=== PATIENT | male | born 1955 | race Caucasian/White ===

== ENCOUNTER 2025-07-09 08:46 | Outpatient (OUT) | payer MEDICARE, SELFPAY ==
--- OUTSIDE RECORDS SUMMARY | 2025-06-28 14:30 | XMS_ITS | Encounter Summary ---
Author Organization [facility] Address [address] [place] [address] Care Team Providers Care Septic Tank Service Technician Name Role Phone Kaur Drew MD Primary Care Provider [phone] Source Comments In the event this information is protected by the Federal Confidentiality of Alcohol and Drug AbusePatient Records regulations: The Federal rules restrict any use of the information to criminally investigate or prosecute any alcohol or drug abuse patient.[facility] Encounter Details DateTypeDepartmentCare Team (Latest Contact Info)Gequhmkdbsi83/08/2025 2:30 PM ESTOffice Visit Orthopaedics [address] [place], [place] [id number] [place] [address] [place] [address] DJD (degenerative joint disease), ankle and foot, left (Primary Dx) Social History Tobacco UseTypesPacks/DayYears UsedDateSmoking Tobacco: SswlaqRyztzyotwk65 Comments:quit 25 years ago Alcohol UseStandard Drinks/WeekCommentsYes1 (1 standard drink = 0.6 oz pure alcohol)socialPHQ-2AnswerDate RecordedPHQ-2 cdhbn55108/26/2024rea Deprivation IndexAnswerDate RecordedNational Score (1-100), lower number is lower risk63 06/28/2025State Score (1-10), lower number is lower wcnz70008/29/2024Data from: https://www.neighborhoodatlas.[facility]/. 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 He is feeling sore. 4/10 when walking. He is not talking anything for the sore. He is here to talk about surgery. Swelling: none Pain: 4/10 WB status: full DME/Mobility: none Treatments Tried: Ice: none NSAIDs: yes Brace: yes Injections: none Physical Therapy: none Surgeries: none PHYSICAL EXAM: General: no acute distress HENT: head normocephalic, mouth mucous membranes are moist. Eyes: extraocular movements intact, pupils are equal, round, and reactive to light. Cardiovascular: DP pulse present Pulmonary: normal work of breathing on room air Skin: capillary refill takes less than 2 seconds Neurological: AOx4, follows commands Musculoskeletal: Left lower extremity Inspection: lower extremity with varus bow of tibia, well healed scars Palpation: no areas of tenderness to palpation Gait: mildly antalgic ROM: tolereates DF 10, PF 20 Neuro: sensation to light touch intact in the superficial peroneal, deep peroneal, tibial, sural, and saphenous nerve distributions Vascular: DP pulse present, 2+ Compartments: compartments of leg are soft and compressible IMAGING: Independent evaluation of following imaging was completed today: XR Left ankle 3 views - distal tibia and fibula extra-articular varus deformity, post-traumatic - ankle DJD, moderate ASSESSMENT: Left ankle DJD, moderate 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 BRACE ORDER Type of Brace Need: - Type of brace: Left Josephine brace - Dx Code: M19.079 - Length of need: custom brace will be needed indefinitely - How brace will improve ADL: the brace will help improve patient ability to ambulate and do ADLs without pain - Imaging: XR Left ankle DJD severe WB status: WBAT Mobility: [place] brace Physical therapy: discussed for calf strengthening Follow up: 3-4 months Imaging at next visit: none Thank you for the opportunity to participate in this patient's care. Satnam Martines MD documented in this encounter Plan of Treatment DateTypeDepartmentCare Team (Latest Contact Info)Osrhrzeasou25/12/2026 11:00 AM ESTAppointment Radiology [address] [place] [address] XR BILATERAL KNEE09/02/2025 11:30 AM ESTOffice Visit Orthopaedics [address] [place] [address] Douglas Castañeda MD [address] [place] [address] Consult bilateral knee cffbvrqhyvk60/09/2026 2:15 PM EDTOffice Visit Orthopaedics [address] [place] [address] [place] [address] [place] [address] LT ANKLEdocumented as of this encounter Visit Diagnoses Diagnosis DJD (degenerative joint disease), ankle and foot, left- Primary documented in this encounter Care Teams Team MemberRelationshipSpecialtyStart DateEnd Date Kaur Drew MD [address] [place] [address] PCP - GeneralFamily Medicine08/10/15documented as of this encounter
--- OUTSIDE RECORDS SUMMARY | 2025-07-01 08:24 | XMS_ITS | Continuity of Care Document ---
Author Organization [facility] Address [address] [place] [address] Phone Care Team Providers Care Unemployment Claims Adjudicator Name Role Phone Kaur Drew MD Primary Care Provider Kaur Drew MD Attending Provider Care Teams Patient Care Team Team Status: Active Member Role/Relationship Status Dates Kaur Drew MD Primary Care Provider Active Patient Care Team Team Status: Inactive Member Role/Relationship Status Dates Kaur Drew MD Primary Care Provider Active Start: July 01, 2025 End: July 01, 2025Kaur Drew MDAttending ProviderActiveStart: July 01, 2025 End: July 01, 2025 Chief Complaint and Reason for Visit Chief Complaint Admit Date wellness July 01, 2025 10:55am Reason for Visit Admit Date Hyperlipidemia, unspecified June 10:55am Screening PSA (prostate specific antigen ) July 01, 2025 10:55am Wellness examination July 01, 2025 10:55am Allergies, Adverse Reactions, Alerts Allergen Type Severity Reaction Last Updated Verified Status No Known Allergies Allergy Unknown July 01, 2025 11:28amYesActive Social History Smoking Status Status Start Date End Date Date of Observa tion Never smoked tobacco (finding) July 01, 2025 11:29am Observation Status Observation Response Date of Response Legal Sex Male (finding) Sex [facility] 1955 Family History Relationship Condition Age at Onset Recorded Date/T lavern brother Family history of lung cancer Unknown Malignant neoplasmUnknown Problems Active Problems Problem Diagnosis/Recorded Date Onset Date Stat us Screening PSA (prostate spec ific antigen) July 01, 2025 12:20pm Unknown Active Wellness examination July 01, 2025 12:20pm Unkno wn Active Hyperlipidemia, unspecified June 30, 2025 1:19pm Unknown Active Medications No known medications Immunizations Immunization Event Date Not Given Reason Dose Number Air Brake Operator Lot Number Reason(s) Given Vaccine Information Statement (VIS) Detail Administration Location influenza, unspecified formulation June influenza, unspecified formulationDe2022 Vital Signs Vital Reading Result Reference Range Collection Date/Time Height 70 [in_i] July 01, 2025 11:52qhFxqujk80.13 kgDe2024 11:28amHeart Rate75 /vso78-683Twqrbqft 11th, 2025 11:37amBP Foollixm584 mm[Hg]100-140De2024 11:37amBP Wccirnade37 mm[Hg]60-100[facility] 2024 11:37amBMI (Body Mass Index)21.2 kg/j1Npsbvdyq2024 11:28am Advance Directives Advance Directive Response Recorded Date/ Time Advance Directives No June 10:53am Insurance Providers Guarantor Tom Culver Chism Address [address] [place] [id number] Info.Home Phone: Coverage Status Update:2025 Payer Group Member ID Coverage Type Subscriber Relationship to Subscriber Effective Date Expiration Date Rissa [facility] PFFS [id number] Chism Id: [id number] [address] [place] [phone] Home Phone: [employer] [address] [facility] [address] Work Phone: [phone] Encounters Encounter Location(s) Arrival/Admit Date Discharge/Departure Date Discharge/Departure Disposition Provider(s) Departed Physician/ Provider Office Visit -[facility] July 01, 2025 10:55am July 01, 2025 1:23pm Discharged to home care or self care (routine discharge) Kaur Drew MD Recent Diagnosis Onset Date Admit Date Hyperlipidemia, unspecified Unknown Dece mb2024 10:55am Screening PSA (prostate specific antigen) Unknow n July 01, 2025 10:55am Wellness examination Unknown July 012024 10:55am Assessments Diagnosis Onset Date Resolution Status Admit Date Hyperlipidemia, unspecified acuteDe2024 10:55amScreening PSA (prostate specific antigen)acute July 01, 2025 10:55amWellness examinationacuteDece2024 10:55am Plan of Treatment Future Tests Future scheduled test information is unavailable Pending Tests Test Name Ordered Date Scheduled Date Comprehensive Metabolic Panel July 01 12:19pm Future Visits Future appointment information is unavailable Future Procedures Procedure Name Ordered Date Scheduled Date Complete Blood Count Auto Diff July 01 12:19pm Lipid PanelDece2024 12:19pmPSA Screen (Yearly Only)July 01, 2025 12:19pm Future Medications Future medication information is unavailable Patient Instructions Patient instructions are unavailable
--- OUTSIDE RECORDS SUMMARY | 2025-07-09 08:55 | XMS_ITS | Encounter Summary ---
Author Organization [facility] Address [address] [place] [address] Care Team Providers Care Photograph Finisher Name Role Phone Kaur Drew MD Primary Care Provider [phone] Source Comments In the event this information is protected by the Federal Confidentiality of Alcohol and Drug AbusePatient Records regulations: The Federal rules restrict any use of the information to criminally investigate or prosecute any alcohol or drug abuse patient.[facility] Reason for Referral * Diagnostic Procedure Only (Routine) - AuthorizedSpecialtyDiagnoses / ProceduresReferred By ContactReferred To ContactXR IMAGING Diagnoses Pain Procedures XR KNEE GENERAL 4V AP BOTH/PA BOTH/LAT/MERC BILATERAL RADIOLOGIC EXAM KNEE COMPLETE 4/MORE VIEWS Natalee Lazo, UNIFORM ROOM ATTENDANT.MEMS INTEGRATION ENGINEER [address] [place] [address] Phone: tel: fax: [place] [address] Referral IDStatusReasonStart DateExpiration DateVisits RequestedVisits [id number] Auto-Generated Referral * Diagnostic Procedure Only (Routine) - ClosedSpecialtyDiagnoses / Procedures Referred By ContactReferred To ContactXR IMAGING Diagnoses Pain Procedures XR ANKLE GENERAL 3V AP/LAT/OBL LEFT RADEX ANKLE COMPLETE MINIMUM 3 VIEWS Natalee Lazo APRN.MEMS INTEGRATION ENGINEER [address] [place] [address] Phone: tel: fax: [facility] [place] [address] Referral IDStatusReasonStart DateExpiration DateVisits RequestedVisits [id number] Auto-Generated Referral Encounter Details DateTypeDepartmentCare Team (Latest Contact Info)Kqftpuxfxjn20/11/2025Orders Only [facility] [address] [place] [address] Natalee Lazo APRN.MEMS INTEGRATION ENGINEER [address] [place] [phone] Pain (Primary Dx) Social History Tobacco UseTypesPacks/DayYears UsedDateSmoking Tobacco: EryajpSpequhrsno69 Comments:quit 25 years ago Alcohol UseStandard Drinks/WeekCommentsYes1 (1 standard drink = 0.6 oz pure alcohol)socialArea Deprivation IndexAnswerDate RecordedNational Score (1-100), lower number is lower blhq113309/10/2024State Score (1-10), lower number is lower etzh561Data from: https://www.neighborhoodatlas.med[facility].edu/. Last address used for aebporvitaj[address]/10/[address]24Sex and Gender InformationValueDate RecordedSex Assigned at BirthNot on fileLegal SexMale 06/22/2012 7:35 AM ESTGender IdentityNot on fileSexual OrientationNot on file documented as of this encounter Plan of Treatment DateTypeDepartmentCare Team (Latest Contact Info)Tojcqiwzkbo80/12/2026 11:00 AM ESTAppointment Radiology [address] [place] [address] XR BILATERAL KNEE09/02/2025 11:30 AM ESTOffice Visit Orthopaedics [address] [place] [address] Douglas Castañeda MD [address] [place] [address] Consult bilateral knee qwoyamvdhka43/09/2026 2:15 PM EDTOffice Visit Orthopaedics [address] [place] [address] [place] [address] [place] [address] LT ANKLENameTypePriorityAssociated DiagnosesOrder ScheduleXR KNEE GENERAL 4V AP BOTH/PA BOTH/LAT/MERC BILATERALRadiologyRoutine Pain 1 Occurrences starting 06/30/2025 until 07/30/2026documented as of this encounter Results * XR ANKLE GENERAL 3V AP/LAT/OBL LEFT (06/02/2025 3:41 PM EST)Anatomical Region LateralityModalityAnkleOtherSpecimen (Source)Anatomical Location / Laterality Collection Method / VolumeCollection TimeReceived Time06/02/2025 3:41 PM EST Impressions 06/02/2025 4:52 PM EST IMPRESSION: 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 Remote healed fractures of the tibia and fibula. Hand Tube Winder: DM ?? Transcribe Date/Time: Jun 02 2025 ??4:48P Dictated by : GENET DOYLE MD This examination was interpreted and the report reviewed and electronically signed by: GENET DOYLE MD on Jun 02 2025 ??4:49PM ??EST Narrative 06/02/2025 4:52 PM EST * * *Final Report* * * DATE OF EXAM: Jun 02 2025 ??3:41PM ?? AFR ?? [id number] ??- ??XR ANKLE 3V AP/LAT/OBL LT ??/ PROCEDURE REASON: Pain ? * * * * Physician Interpretation * * * * X-RAYS LEFT ANKLE. HISTORY: ?? CHRONIC LEFT ANKLE PAIN. ?? Pain TECHNIQUE: 3 views of the left ankle. COMPARISON: ??None RESULT: No prior radiographs available for comparison. ??There is a remote healed fracture of the distal tibial shaft and remote healed fracture of the mid fibular shaft. ??There is severe osteoarthritis at the right ankle tibiotalar joint with complete loss of the joint space laterally. ?? Subtalar joint appears maintained. ??No acute fracture or dislocation identified. Procedure Note Provider, [facility] - 06/02/2025 * * *Final Report* * * DATE OF EXAM: Jun 02 2025 3:41PM AFR [id number] - XR ANKLE 3V AP/LAT/OBL LT / PROCEDURE REASON: Pain * * * * Physician Interpretation * * * * X-RAYS LEFT ANKLE. HISTORY: CHRONIC LEFT ANKLE PAIN. Pain TECHNIQUE: 3 views of the left ankle. COMPARISON: None RESULT: No prior radiographs available for comparison. There is a remote healed fracture of the distal tibial shaft and remote healed fracture of the mid fibular shaft. There is severe osteoarthritis at the right ankle tibiotalar joint with complete loss of the joint space laterally. Subtalar joint appears maintained. No acute fracture or dislocation identified. 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 Remote healed fractures of the tibia and fibula. Hand Tube Winder: DM Transcribe Date/Time: Jun 02 2025 4:48P Dictated by : GENET DOYLE MD This examination was interpreted and the report reviewed and electronically signed by: GENET DOYLE MD on Jun 02 2025 4:49PM EST Authorizing ProviderResult TypeResult StatusMohamed M Clifton UNIFORM ROOM ATTENDANT.CNPRAD-PAMA Final Result documented in this encounter Visit Diagnoses Diagnosis Pain- Primary Generalized pain Pain Generalized pain documented in this encounter Care Teams Team MemberRelationshipSpecialtyStart DateEnd Date Kaur Drew MD [address] [place] [address] PCP - GeneralFamily Medicine08/10/15documented as of this encounter
--- OUTSIDE RECORDS SUMMARY | 2025-07-09 08:55 | XMS_ITS | Clinical Summary ---
Author Organization [facility] Address [id number] [place] [address] Care Team Providers Care Justowriter Operator Name Role Phone Kaur Drew MD Primary Care Provider [phone] Allergies No known active allergies Medications No known medications Active Problems ProblemNoted DateDiagnosed DatePost-traumatic arthritis of ankle, left03/11/2024 Social History Tobacco UseTypesPacks/DayYears UsedDateSmoking Tobacco: NeverSmokeless Tobacco: Never Tobacco Cessation:Counseling Given: No Alcohol UseStandard Drinks/WeekCommentsYes0 (1 standard drink = 0.6 oz pure alcohol)sociallyChildcareAnswerDate OrpwauquIujgfqfyvSdstkgd14/10/2019Employment AnswerDate UbffsvaxSziqbyslclEcwozcl56/10/2019Hunger ScreeningAnswerDate RecordedWithin the past 12 months we worried whether our food would run out before we got money to buy more.Never True03/11/2024Within the past 12 months the food we bought just didn't last and we didn't have money to get more.Never True4Purpose - LifeAnswerDate RecordedPurpose and direction in life Eckkhve2708/08/2020ex and Gender InformationValueDate RecordedSex Assigned at WojdbWdbu84/01/2021 7:52 PM ESTLegal DvhDorl3702/22/2015 2:52 PM EDTGender BbpdwgmxZvxi81/01/2021 7:52 PM ESTSexual IdybfaohasbHjsexokb72/01/2021 7:52 PM EST Last Filed Vital Signs Vital SignReadingTime TakenCommentsBlood Pressure--Pulse--Mkynjbryvvi71.3 ??C (97.3 ??F)11/16/2020 1:35 PM EDTRespiratory Rate--Oxygen Saturation--Inhaled Oxygen Concentration--Pgdasz79.7 kg (149 lb 3.2 oz)03/11/2024 2:36 PM EDTHeight 172.7 cm (5' 8 )03/11/2024 2:36 PM EDTBody Mass Index22.69003/11/2024 2:36 PM EDT Plan of Treatment Health MaintenanceDue DateLast DoneCommentsDepression Gsslvwdxt10/17/1968 DTaP,Tdap and Td Vaccines (1 - Tdap)10/05/1974Zoster (Shingles) Vaccine (1 of 2) 10/05/2005Fall Risk Mcpkgvdek74/17/2021dult BMI Jbhjbwxlj64/ Tobacco Qimlhntaj68/OVID-19 Vaccine (2 - season) /12/2020Influenza Gqhiwch47/2RSV ( or age 60+ yrs) (1 - 1-dose 75+ series)10/05/2030 Medical Devices Not on file Insurance Care Teams Team MemberRelationshipSpecialtyStart DateEnd Date Kaur Drew MD [facility] [place] [address] [facility]08/08/20
--- OUTSIDE RECORDS SUMMARY | 2025-07-09 08:55 | XMS_ITS | Clinical Summary ---
Author Organization [facility] Address [address] [place] [address] Care Team Providers Care Shoe Repair Supervisor Name Role Phone Kaur Drew MD Primary Care Provider Allergies No known active allergies Medications MedicationSigDispense QuantityRefillsLast FilledStart DateEnd DateStatus multivitamin ORAL Tab Take one(1) tablet daily.ctive doxycycline (VIBRA-TABS) 100 mg tablet Take 1 tablet by mouth two times a day. 14 tablet 5Active Active Problems ProblemNoted DateDiagnosed DateUlcerative colitis, unspecified Overview (10/04/2005): Ulcerative colitis Encounters DateTypeDepartmentCare KbgdAmudxekdhvz95/08/2025 2:30 PM ESTOffice Visit Orthopaedics [address] [place] [address] Satnam Martines MD DJD (degenerative joint disease), ankle and foot, left (Primary Dx)06/14/2025 1:43 PM EST - 06/14/2025 11:59 PM ESTHospital Encounter Radiology [address] [place] [address] Chronic pain of left ankle [M25.572, G89.29] Discharge Disposition: Home06/13/20252779Vnwhmy16/12/2025 4:00 PM ESTOffice Visit Orthopaedics [address] [place] [address] Natalee Lazo, VICE PRESIDENT SALES.MOLD CHANGER Chronic pain of left ankle (Primary Dx); Left foot pain06/02/2025 3:24 PM EST - 06/02/2025 11:59 PM ESTHospital Encounter Radiology [address] [place], [place] [id number] Pain [R52] Discharge Disposition: Home06/01/2025Orders Only [facility] [place] [address] [place] [address] Natalee Lazo, VICE PRESIDENT SALES.MOLD CHANGER Pain (Primary Dx)04/16/2025 2:30 PM EDTOffice Visit Dermatology [address] [place] [address] Eddi Bautista MD Skin cancer screening (Primary Dx); Diffuse photodamage of skin; History of basal cell carcinoma; Seborrheic keratosisfrom Last 3 Months Family History Medical HistoryRelationCommentsGIMaternal Auntcrohn'sAlzheimer's DiseaseMother HeartPaternal GrandmotherRelationStatusCommentsMaternal AuntMotherPaternal Grandmother Social History Tobacco UseTypesPacks/DayYears UsedDateSmoking Tobacco: ZlhqqgZdjlnhwnuy09 Comments:quit 25 years ago Alcohol UseStandard Drinks/WeekCommentsYes1 (1 standard drink = 0.6 oz pure alcohol)socialPHQ-2AnswerDate RecordedPHQ-2 eqopu00208/26/2024rea Deprivation IndexAnswerDate RecordedNational Score (1-100), lower number is lower risk63 06/28/2025State Score (1-10), lower number is lower rtpl13008/29/2024Data from: https://www.neighborhoodatlas.medicine.[facility].edu/. Last address used for hjmkexkxg[address] 6[address]/28/2025Sex and Gender InformationValueDate RecordedSex Assigned at BirthNot on fileLegal BruErqr45/02/2012 7:35 AM EST Gender IdentityNot on fileSexual OrientationNot on file Last Filed Vital Signs Vital SignReadingTime TakenCommentsBlood Yyenklla979/6904 10:42 AM EDT Xcjvf1031/01/2007 7:00 AM QUIAmrpqwyeitm12.5 ??C (95.9 ??F)06/21/2007 7:00 AM ESTRespiratory Bqzb567108/22/2006 7:00 AM ESTOxygen Eajrhqbbhp893%06/21/2007 7:00 AM ESTInhaled Oxygen Concentration--Obbotb57.5 kg (140 lb)07/08/2007 2:04 PM EST Stmzjq668.8 cm (5' 10 )06/02/2007 3:09 PM ESTBody Mass Index20. 3:09 PM EST Plan of Treatment DateTypeDepartmentCare Team (Latest Contact Info)Wkczyngniou64/12/2026 11:00 AM ESTAppointment Radiology [address] [place] [address] XR BILATERAL KNEE09/02/2025 11:30 AM ESTOffice Visit Orthopaedics [address] [place] [address] Douglas Castañeda MD [address] [place] [address] Consult bilateral knee vhbpejageth61/09/2026 2:15 PM EDTOffice Visit Orthopaedics [address] [place] [address] [place] [address] [place] [address] LT ANKLEHealth MaintenanceDue DateLast DoneCommentsAbdominal Aortic Aneurysm Hinvhbkfa80/17/1956Anxiety Hrhhgesjx79/17/1974Depression Ikhxbwnmk54/17/1974 Hepatitis C Ltpwmumis87/17/1974DTaP,Tdap,Td Vaccine (1 - Tdap)10/05/1974Lipid Bsogyywaa42/17/1991CT Lpeoguslpbme96/17/2001Cologuard (FIT-DNA)10/05/2000 Tbufmobibpi28/17/2001Colorectal Cancer Wuzozcujj92/17/2001Fecal Occult Blood 10/05/20001450Osxgbpfteaptm11/17/2001Pneumococcal Vaccine: 50+ (1 of 1 - PCV) 10/05/2005Shingrix Vaccine (1 of 2)10/05/2005Diabetes Wojhlrzov85/30/2010 06/20/2007, 06/20/2007, 06/19/2007, Additional history existsAdvance Directive Ynjblnaoqt92/01/2025Medicare Advantage Annual Wellness Visit07/22/2024ovid-19 Vaccine (2024- season)2025Influenza Vaccine (#1)2025RSV Vaccine (1 - 1-dose 75+ series)10/05/2030 Procedures Procedure NamePriorityDate/TimeAssociated DiagnosisCommentsCT ANKLE WO IVCON XPMNFpplujn75/24/2025 2:02 PM EST Chronic pain of left ankle XR ANKLE GENERAL 3V AP/LAT/OBL JTDUWdfapzt22/12/2025 3:41 PM EST Pain BASIC METABOLIC ZHGIQDdzdbqs83/30/2007 1:15 AM EST from Last 3 Months or Most Recently Relevant to Health Maintenance Results * CT ANKLE WO IVCON LEFT (06/14/2025 2:02 PM EST)Anatomical RegionLaterality ModalityAnkleComputed TomographySpecimen (Source)Anatomical Location / LateralityCollection Method / VolumeCollection TimeReceived Time06/14/2025 2:02 PM EST Narrative 06/15/2025 8:45 AM EST * * *Final Report* * * DATE OF EXAM: Jun 14 2025 ??2:02PM ?? LNC ?? 0060 ??- ??CT ANKLE WO IVCON LT ??/ PROCEDURE REASON: multiple diagnoses ? * * * * Physician Interpretation * * * * RESULT: EXAM: CT ANKLE WO IVCON LT HISTORY: ??Chronic pain of left ankle COMPARISON: X-ray 06/02/2025 TECHNIQUE: Axial images were obtained through the left without contrast. Coronal and sagittal reconstructions were generated from the axial data. CT Radiation dose: Integrated Dose-length product (DLP) for this visit = ?? 322 mGy*cm. CT Dose Reduction Employed: Automated exposure control was utilized. RESULT: BONES: Normal bone density. Healed fracture deformities of the distal tibial and fibular diaphysis. ?? There is some apex lateral angulation. ??This is healed with slight displacement within the fibula. There is transverse hardware screw tract within the distal tibial diaphysis. ??No residual hardware. Tiny calcaneal enthesophyte at the Achilles insertion. JOINT SPACES: There is moderate to advanced tibiotalar and talonavicular joint space narrowing. ??Other mild to moderate joint space narrowing. Tibiotalar subchondral cysts and osteophytes. ??There is mild valgus angulation at the ankle. Small talonavicular and navicular cuneiform dorsal osteophytes. ?? Subchondral cystic changes within the navicular and the middle cuneiform. No dislocation. ??No osseous erosions. SOFT TISSUES: There is mild posterior tibial tendon tenosynovitis. ??Tiny ankle joint effusion. Localizer images: No other significant findings. IMPRESSION 1. ??Remote healed distal tibial and fibular fracture deformities. ??No acute osseous finding. 2. ??Advanced posttraumatic osteoarthropathy. 3. ??Findings suggesting a mild posterior tibial tendon tenosynovitis. Transcribe Date/Time: Jun 15 2025 ??8:38A Dictated by: YANY STONE MD This examination was interpreted and the report reviewed and electronically signed by: YANY STONE MD on Jun 15 2025 ??8:43AM ??EST Thank you for allowing us to participate in the care of your patient. Should there be any questions regarding this interpretation, please call [phone]. If you are unable to reach us at the number above, please feel free to contact [facility] eRadiology at [phone]. Procedure Note Provider, [facility] [place] - 06/15/2025 * * *Final Report* * * DATE OF EXAM: Jun 14 2025 2:02PM [facility] 0060 - CT ANKLE WO IVCON LT / PROCEDURE REASON: multiple diagnoses * * * * Physician Interpretation * * * * RESULT: EXAM: CT ANKLE WO IVCON LT HISTORY: Chronic pain of left ankle COMPARISON: X-ray 06/02/2025 TECHNIQUE: Axial images were obtained through the left without contrast. Coronal and sagittal reconstructions were generated from the axial data. CT Radiation dose: Integrated Dose-length product (DLP) for this visit = 322 mGy*cm. CT Dose Reduction Employed: Automated exposure control was utilized. RESULT: BONES: Normal bone density. Healed fracture deformities of the distal tibial and fibular diaphysis. There is some apex lateral angulation. This is healed with slight displacement within the fibula. There is transverse hardware screw tract within the distal tibial diaphysis. No residual hardware. Tiny calcaneal enthesophyte at the Achilles insertion. JOINT SPACES: There is moderate to advanced tibiotalar and talonavicular joint space narrowing. Other mild to moderate joint space narrowing. Tibiotalar subchondral cysts and osteophytes. There is mild valgus angulation at the ankle. Small talonavicular and navicular cuneiform dorsal osteophytes. Subchondral cystic changes within the navicular and the middlecuneiform. No dislocation. No osseous erosions. SOFT TISSUES: There is mild posterior tibial tendon tenosynovitis. Tiny ankle joint effusion. Localizer images: No other significant findings. IMPRESSION 1. Remote healed distal tibial and fibular fracture deformities. No acute osseous finding. 2. Advanced posttraumatic osteoarthropathy. 3. Findings suggesting a mild posterior tibial tendon tenosynovitis. Transcribe Date/Time: Jun 15 2025 8:38A Dictated by: YANY STONE MD This examination was interpreted and the report reviewed and electronically signed by: YANY STONE MD on Jun 15 2025 8:43AM EST Thank you for allowing us to participate in the care of your patient. Should there be any questions regarding this interpretation, please call [phone]. If you are unable to reach us at the number above, please feel free to contact [facility] eRadiology at [phone]. Authorizing ProviderResult TypeResult StatusMohamed Chary Lazo VICE PRESIDENT SALES.CNPCT-PAMAFinal Result * XR ANKLE GENERAL 3V AP/LAT/OBL LEFT (06/02/2025 3:41 PM EST)Anatomical Region LateralityModalityAnkleOtherSpecimen (Source)Anatomical Location / Laterality Collection Method / VolumeCollection TimeReceived Time06/02/2025 3:41 PM EST Impressions 06/02/2025 4:52 PM EST IMPRESSION: 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 Remote healed fractures of the tibia and fibula. Wire Bender Hand: DM ?? Transcribe Date/Time: Jun 02 2025 [...] fracture or dislocation identified. Procedure Note Provider, [facility] [place] - 06/02/2025 * * *Final Report* * [...] healed fractures of the tibia and fibula. Wire Bender Hand: DM Transcribe Date/Time: Jun 02 2025 4:48P Dictated by : GENET DOYLE MD This examination was interpreted and the report reviewed and electronically signed by: GENET DOYLE MD on Jun 02 2025 4:49PM EST Authorizing ProviderResult TypeResult StatusMohamed Chary Rosada VICE PRESIDENT SALES.CNPRAD-PAMA Final Result * (ABNORMAL) BASIC METABOLIC PNL (06/20/2007 1:15 AM EST)ComponentValueRef Range Test MethodAnalysis TimePerformed AtPathologist FmvtlrkqzDsjhkjt5449 - 100 mg/dLPREMIER HEALTH [facility] MAIN XQRKZSTLPSJZU2160 - 25 mg/dLST. CHARLES H[facility]ITAL LABORATORYCreatinine0.5(L)0.7 - 1.4 mg/dLST. CHARLES HOSPITAL LABORATORY Jtsfxq608(L)135 - 146 mmol/LCCLEVELAND CLINIC HILLCREST [facility] MAIN LABORATORYPotassium3.83.5 - 5.0 mmol/LCGEORGETOWN BEHAVIORAL HOSPITALAND [facility] MA[facility] QMPVOOJSQBEbdsyhpi53(L)98 - 110 mmol/L [facility] VBFDSLQMWPLU03095 - 32 mmol/LCCLEVELAND CLINIC HILLCREST [facility] MAIN LABORATORYAnion Ynw290 - 15 mmol/LCLAKE COUNTY MEMORIAL [facility] LABORATORYCalcium8.5 8.5 - 10.5 mg/dLST. CHARLES HOSPITAL LABORATORYSpecimen (Source)Anatomical Location / LateralityCollection Method / VolumeCollection TimeReceived Time Blood specimen (specimen)BLOOD SPECIMEN / Bjobbcg4506/20/2007 1:15 AM EST Narrative Authorizing ProviderResult TypeResult StatusDanicheryl Fernie ArtLABORATORY Final ResultPerforming OrganizationAddressCity/State/ZIP CodePhone Number [facility] [address] [place] [address] from Last 3 Months or Most Recently Relevant to Health Maintenance Insurance * Guarantor: Tom Chandler GAccount TypeRelation to PatientDate of BirthPhone Billing AddressPersonal/LgtcshSnvm[birth year][address] [address] Care Teams Team MemberRelationshipSpecialtyStart DateEnd Date Kaur Drew MD [address] [place] [address] [facility] - [facility]/15
[2025-07-09 09:23] LABS: Hematocrit 44.5 % (42.0-54.0); Hemoglobin 14.5 g/dL (14.0-18.0); Immature Granulocytes Abs Auto 0.02 10^3/uL (0.00-0.03); Immature Granulocytes Pct Auto 0.3 % (0.0-0.5); Lymphocytes Absolute Auto 1.9 10^3/uL (1.2-3.8); Mean Corpuscular HGB Conc 32.6 g/dL (29.9-35.2); Mean Corpuscular Hemoglobin 28.3 pg (25.9-34.0); Mean Corpuscular Volume 86.7 fL (80.0-94.0); Platelet Count 217 10^3/uL (150-450); Red Blood Count 5.13 10^6/uL (4.70-6.10); White Blood Count 6.0 10^3/uL (4.0-11.0)
[2025-07-09 09:54] LABS: Alanine Aminotransferase 27 U/L (16-63); Albumin Globulin Ratio 1.2; Albumin Level 4.0 g/dL (3.4-5.0); Alkaline Phosphatase 70 U/L (46-116); Anion Gap 12.2; Aspartate Amino Transferase 21 U/L (15-37); Blood Urea Nitrogen 16.0 mg/dL (7.0-18.0); Calcium 8.9 mg/dL (8.5-10.1); Carbon Dioxide 30.7 mmol/L (21.0-32.0); Chloride 104 mmol/L (98-107); Cholesterol 270 mg/dL (<=200); Estimated GFR (African America >60 (>=60 mL/min/1.73m^2); Estimated GFR (Non-African Ame >60 (>=60 mL/min/1.73m^2); Globulin 3.4 g/dL; Glucose 93 mg/dL (74-106); HDL Cholesterol 65 mg/dL (40-60); Potassium 3.9 mmol/L (3.5-5.1); Sodium 143 mmol/L (136-145); Total Protein 7.4 g/dL (6.4-8.2); Triglycerides 127 mg/dL (<=150); VLDL CHOLESTEROL 25.4 mg/dL
== END 2025-07-09 08:47 | disposition home or self-care (01) ==
LOC: LAB 08:51
PROVIDERS: PCP Family Medicine; Visit Provider Family Medicine
DX: Z00.00 Encounter for general adult medical examination without abnormal findings (principal); E78.5 Hyperlipidemia, unspecified; Z12.5 Encounter for screening for malignant neoplasm of prostate
CPT/HCPCS: 36415; 80053; 80061; 85025; G0103